=== PATIENT | male | born 1955 | race Caucasian/White ===

== ENCOUNTER → 2017-01-26 | Day surgery (SDC) | payer OTHER ==
[2017-01-18 08:02] VITALS: Ht 182.9 cm; Wt 109.1 kg
[~2017-01-26] VITALS: Ht 182.9 cm; Wt 109.1 kg
[~2017-01-26] MED LIST: AMLO-342 PO; COQ10 PO; LIDOCAINE HCL 2% 2 ML VIAL (20MG/ML) ONE; LORA-741 PO; MIDAZOLAM HCL 1 MG/ML 2ML VIAL ONE; MISCCAP80 PO; MULT-506 PO; ONDANSETRON INJ 2 MG/ML 2 ML VIAL ONE; PROPOFOL IV EMULSION 10 MG/ML 20 ML VIAL IV ONE; SIMV20TA2 PO; SODIUM CHLORIDE 0.9% 500ML 500 ML IV ONE
--- NOTE | 2017-01-26 08:50 | Endo History and Physical ---
History & Physical Date of Service: Jan 26, 2017. Chief Complaint: 5YR F/U TO POLYPS Referring Physician: DR Erin WHEELER History of Present Illness 61 yo CM who presents for colonoscopy secondary to history of colon polyps. Past Surgical History Hx Cardiac Surgery: No Hx Internal Defibrillator: No Hx Pacemaker: No Hx Abdominal Surgery: No Hx Post-Op Nausea and Vomiting: No Hx Cancer Surgery: No Hx Thoracic Surgery: No Hx Orthopedic: Yes (LEFT PRABHU, ACL REPAIR-LEFT) Hx Urinary Tract Surgery: No Family History None Social History Smoking Status: Never Smoker Hx Substance Use: No Hx Alcohol Use: Yes (OCCASSIONALLY) Allergies Coded Allergies: No Known Allergies (Verified , 01/26/17) Current Medications Reported Home Medications Medications Dose Route/Sig Max Daily Dose Days Date Category Zocor (Simvastatin) 20 Mg Tab 20 Mg PO QPM 01/18/17 Reported Probiotic (Probiotic Product) 1 Cap Cap 1 Cap PO QAM 01/18/17 Reported Multivitamin (Multivitamins) Tab 1 Tab PO QAM 01/18/17 Reported Ativan (Lorazepam) 0.5 Mg Tab 0.5 Mg PO DIRECTED PRN 01/18/17 Reported [Coq10] 1 Cap PO QAM 01/18/17 Reported Amlodipine Besylate/Valsa 10-160 mg (Amlodipine Besylate-Valsartan) 1 Tab Tab 1 Tab PO QAM 01/18/17 Reported Vital Signs Weight (Kilograms): 109.09 Height (Feet): 6 Height (Inches): 0 Date Time Temp Pulse Resp B/P Pulse Ox O2 Delivery O2 Flow Rate FiO2 01/26/17 08:19 36.9 91 20 167/92 95 Room Air Physical Exam General Appearance: WD/WN, no apparent distress Respiratory/Chest: Auscultation: breath sounds normal Cardiovascular: Heart Auscultation: RRR Abdomen: Bowel Sounds: normal Inspection & Palpation: soft, non-distended, no tenderness, guarding & rebound Assessment and Plan Assessment: 61 yo CM who presents for colonoscopy secondary to history of colon polyps. Plan: Proceed with colonoscopy.
--- NOTE | 2017-01-26 09:17 | Discharge Instructions ---
Endoscopy Patient Instructions Date / Procedure(s) Performed Jan 26, 2017. Colonoscopy Allergy Information Coded Allergies: No Known Allergies (Verified , 01/26/17) Discharge Date / Findings Jan 26, 2017. Colon polyps Diverticulosis Medication Instructions OK to resume all medications today as prescribed Reported Home Medications Medications Dose Route/Sig Max Daily Dose Days Date Category Zocor (Simvastatin) 20 Mg Tab 20 Mg PO QPM 01/18/17 Reported Probiotic (Probiotic Product) 1 Cap Cap 1 Cap PO QAM 01/18/17 Reported Multivitamin (Multivitamins) Tab 1 Tab PO QAM 01/18/17 Reported Ativan (Lorazepam) 0.5 Mg Tab 0.5 Mg PO DIRECTED PRN 01/18/17 Reported [Coq10] 1 Cap PO QAM 01/18/17 Reported Amlodipine Besylate/Valsa 10-160 mg (Amlodipine Besylate-Valsartan) 1 Tab Tab 1 Tab PO QAM 01/18/17 Reported Provider Instructions Activity Restrictions - No exercising or heavy lifting for 24 hours. - Do not drink alcohol the day of the procedure. - Do not drive a car or operate machinery until the day after the procedure. - Do not make any important decisions or sign important papers in 24 hours after the procedure. Following Day: - Return to full activity which may include returning to work/school. Diet Start your diet with liquids and light foods (jello, soup, juice, toast). Then eat your usual diet if not nauseated. Treatment For Common After Affects For mild abdominal pain, bloating, or excessive gas: - Rest - Eat lightly - Lie on right side Follow-Up Information Follow-up with DR Erin WHEELER as scheduled Anesthesia Information What You Should Know You have had a procedure that required some medicine to reduce anxiety and discomfort. This treatment is called moderate sedation. After receiving the treatment, you may be sleepy, but you will be able to breathe on your own. The effects of the treatment may last for several hours. Follow these instructions along with Activity/Diet recommendations noted above: * Do NOT do anything where dizziness or clumsiness would be dangerous. * Rest quietly at home today, then you can be up and about tomorrow. * Have a responsible person stay with you the rest of today. * You may have had an I.V. today. If so, you may take the dressing off later today. Recommendations Call your doctor if: * Trouble breathing * Continuous vomiting for more than 24 hours * Temperature above 101 degrees * Severe abdominal pain or bloating * Pain not relieved by pain medicine ordered * There is increased drainage or redness from any incision * A large amount of rectal bleeding greater than 2-3 tablespoons. (If you had a polyp/s removed or have hemorrhoids, a small amount of blood - from the rectum is to be expected.) * You have any unanswered questions or concerns. IN THE EVENT OF A SERIOUS EMERGENCY, GO TO THE NEAREST EMERGENCY ROOM Your discharge instructions were prepared by provider Pierce Celis. Patient Instructions Signature Page Julio Yousif Patient (or Guardian) Signature/Date: I have read and understand the instructions given to me by my caregivers. Caregiver/RN/Doctor Signature/Date: The above-named patient and/or guardian has received patient instructions on this date. + Original Patient Signature Page (only) stays with chart. Please make copy for patient.
--- NOTE | 2017-01-26 09:20 | GI REPORT ---
Procedure Date: 01/26/2017 8:43 AM Procedure: Colonoscopy Indications: High risk colon cancer surveillance: Personal history of colonic polyps Medicines: Monitored Anesthesia Care Complications: No immediate complications. Estimated Blood Loss: Estimated blood loss: none. Procedure: Pre-Anesthesia Assessment: - Prior to the procedure, a History and Physical was performed, and patient medications and allergies were reviewed. The patient's tolerance of previous anesthesia was also reviewed. The risks and benefits of the procedure and the sedation options and risks were discussed with the patient. All questions were answered, and informed consent was obtained. Prior Anticoagulants: The patient has taken no previous anticoagulant or antiplatelet agents. ASA Grade Assessment: II - A patient with mild systemic disease. After reviewing the risks and benefits, the patient was deemed in satisfactory condition to undergo the procedure. After I obtained informed consent, the scope was passed under direct vision. Throughout the procedure, the patient's blood pressure, pulse, and oxygen saturations were monitored continuously. The scope was introduced through the anus and advanced to the terminal ileum. The colonoscopy was performed without difficulty. The patient tolerated the procedure well. The quality of the bowel preparation was good. The terminal ileum, ileocecal valve, appendiceal orifice, and rectum were photographed. Findings: Three sessile polyps were found in the descending colon and in the ascending colon. The polyps were 5 to 6 mm in size. These polyps were removed with a hot snare. Resection and retrieval were complete. Multiple small-mouthed diverticula were found in the sigmoid colon. Impression: - Three 5 to 6 mm polyps in the descending colon and in the ascending colon, removed with a hot snare. Resected and retrieved. - Diverticulosis in the sigmoid colon. Recommendation: - Resume previous diet. - Continue present medications. - Repeat colonoscopy for surveillance based on pathology results. - Return to primary care physician as previously scheduled. Pierce Celis DO 01/26/2017 9:20:41 AM This report has been signed electronically. Note Initiated On: 01/26/2017 8:43 AM I attest to the content of the Intraoperative Record and orders documented therein, exceptions below
--- NOTE | 2017-01-26 09:38 | Anesthesiology Progress Note ---
Anesthesia Post Op Note Date & Time Jan 26, 2017 at 09:38 Vital Signs Pain Intensity: 0 Vital Signs Past 12 Hours Date Time Temp Pulse Resp B/P Pulse Ox O2 Delivery O2 Flow Rate FiO2 01/26/17 09:36 67 18 134/77 98 Room Air 01/26/17 09:22 76 16 117/75 96 Room Air 01/26/17 08:19 36.9 91 20 167/92 95 Room Air Notes Mental Status: alert / awake / arousable, participated in evaluation Pt Amnestic to Procedure: Yes Nausea / Vomiting: adequately controlled Pain: adequately controlled Airway Patency, RR, SpO2: stable & adequate BP & HR: stable & adequate Hydration State: stable & adequate Anesthetic Complications: no major complications apparent Pt doing very well.
[2017-01-26 09:56] VITALS: BP 130/78; PULSE 66; O2SAT 96
== END | disposition home or self-care (01) ==
LOC: C.GI 08:00
PROVIDERS: ATTEND Internal Medicine
DX: Z12.11 Encounter for screening for malignant neoplasm of colon (principal); Z86.010 Personal history of colon polyps; D12.4 Benign neoplasm of descending colon; K57.30 Diverticulosis of large intestine without perforation or abscess without bleeding; K64.8 Other hemorrhoids; Z98.890 Other specified postprocedural states

== ENCOUNTER → 2017-01-28 | Outpatient (CLI) | payer OTHER ==
[~2017-01-28] MED LIST changes: -LIDOCAINE HCL 2% 2 ML VIAL (20MG/ML) ONE; -MIDAZOLAM HCL 1 MG/ML 2ML VIAL ONE; -ONDANSETRON INJ 2 MG/ML 2 ML VIAL ONE; -PROPOFOL IV EMULSION 10 MG/ML 20 ML VIAL IV ONE; -SODIUM CHLORIDE 0.9% 500ML 500 ML IV ONE
== END | disposition home or self-care (01) ==
LOC: C.LABBC 14:45
PROVIDERS: ATTEND Internal Medicine
DX: Z11.59 Encounter for screening for other viral diseases (principal)

== ENCOUNTER → 2018-01-10 | Day surgery (SDC) | payer OTHER, SELFPAY ==
[2018-01-02 11:01] VITALS: Ht 182.9 cm; Wt 110.9 kg
[2018-01-03 15:25] LABS: CREATININE 0.85 mg/dl (0.60-1.40); POTASSIUM 3.8 mmol/L (3.5-5.1)
[2018-01-03 15:46] LABS: BASO % 0.3 %; BASO ABS # 0.03 K/uL (0-0.2); EOS % 1.4 %; EOS ABS # 0.12 K/uL (0-0.5); HEMATOCRIT 43.7 % (42-52); IG# 0.03 K/uL (0.00-0.02); LYMPH % 23.9 %; LYMPH ABS # 2.09 K/uL (1.2-3.4); MEAN CELL VOLUME 97.8 fL (80-100); MEAN CORPUSCULAR HEMOGLOBIN 33.6 pg (25-34); MEAN CORPUSCULAR HGB CONC 34.3 g/dl (32-36); MEAN PLATELET VOLUME 10.2 fL (7.4-10.4); MONO % 20.8 %; MONO ABS # 1.82 K/uL (0.11-0.59); NEUT % 53.3 %; NEUT ABS # 4.66 K/uL (1.4-6.5); PLATELET COUNT 238 K/uL (130-400); RED CELL DISTRIBUTION WIDTH CV 13.3 % (11.5-14.5); RED CELL DISTRIBUTION WIDTH SD 47.5 fL (36.4-46.3); WHITE BLOOD COUNT 8.75 K/uL (4.8-10.8)
[2018-01-03 15:51] LABS: PTT PATIENT 32.2 SECONDS (21.0-31.0)
[~2018-01-10] VITALS: Ht 182.9 cm; Wt 110.9 kg
[~2018-01-10] MED LIST changes: +ACETAMINOPHEN 325 MG TAB PO PRN; +ARTIFICIAL TEARS OP OINT 3.5 GM TUBE ONE; +ATROPINE SULFATE 0.1 MG/ML 5ML SYR IV PRN; +BSS FLUSH ONE; +CEFAZOLIN 2000MG IV PUSH 15 ML IV SCH; +ERYTHROMYCIN OP OINT 5 MG/GM 3.5 GM TUBE ONE; +EpHEDrine SULFATE 50MG/5ML SYR ONE; +EpHEDrine SULFATE INJ 50 MG/ML AMP IV PRN; +FENTANYL CITRATE INJ 50 MCG/1 ML 2 ML VIAL IV PRN; +FENTANYL CITRATE INJ 50 MCG/1 ML 2 ML VIAL ONE; +GENTIAN VIOLET TOP SOLN DROP CHARGE ONE; +LACTATED RINGER'S 1000ML 1,000 ML IV SCH; +LIDOCAINE HCL 2% 2 ML VIAL (20MG/ML) ONE; +LIDOCAINE/EPINEPHRINE 1% 20 ML VIAL ONE; -LORA-741 PO; +METOCLOPRAMIDE HCL INJ 5 MG/ML 2 ML VIAL IV PRN; +MIDAZOLAM HCL 1 MG/ML 2ML VIAL ONE; +ONDANSETRON INJ 2 MG/ML 2 ML VIAL IV PRN; +ONDANSETRON INJ 2 MG/ML 2 ML VIAL ONE; +OXYCODONE/ACETAMINOPHEN 5-325 TAB PO PRN; +PHENYLEPHRINE HCL INJ 10 MG/ML VIAL ONE; +POVIDONE-IODINE OP SOLN 30 ML BTL ONE; +PROPOFOL IV EMULSION 10 MG/ML 20 ML VIAL IV ONE; +SODIUM CHLORIDE 0.9% 1000ML 1,000 ML IV SCH
--- NOTE | 2018-01-10 07:36 | History & Physical Bridge - [place] ---
H&P Re-Evaluation Bridge Note: I have examined the patient, reviewed the History & Physical and in the interval since the performance of the History & Physical I have noted the following changes of clinical significance: No changes noted
--- NOTE | 2018-01-10 10:16 | Discharge Instructions ---
Discharge Instructions Date of Service Jan 10, 2018. Admission Reason for Admission: Dermatochalasis Discharge Discharge Diagnosis / Problem: dermatochalasis Discharge Goals Goal(s): Decrease discomfort, Improve function Activity Recommendations Activity Limitations: per Instructions/Follow-up section ACTIVITY RECOMMENDATIONS: __Normal activities _x_No bending, lifting or straining __No driving __Driving allowed when you are off pain medications _x_Walking permitted __You should have help at home for ___ days DRESSINGS: _x_No dressings required __Keep dressings dry/in place until first office visit __Remove dressings ___ and leave dressings off x__Apply ice to upper and lower eyelids for 20 minutes on/20 minutes off while awake for at least 3 days __Remove dressings and reapply garment _x_Apply antibiotic ointment to wounds 3-4 times/day for 10 days BATHING: __Keep dressings dry _x_Sponge bathing permitted __Showering permitted _x_No swimming, hot tubs or soaking in a tub. No showering until seen for your post-op visit MEDICATIONS: Resume previous medications unless instructed otherwise by your surgeon. _x_Do not use aspirin, Motrin, Advil or Ibuprofen as these may promote bleeding. Please use Tylenol. _x_Prescription(s) provided: pain medication and antibiotic eye ointment were provided at your last office visit OTHER INSTRUCTIONS: __Record drain output 2-3 times per day SPECIAL CARE INSTRUCTIONS: * It is normal to have a mild fever after surgery. If your temperature is higher than 101.5 degrees F, please call the office at [phone]. * Constipation is a typical side effect of pain medication. An over-the- counter stool softener will help relieve this. * Leaking around surgical drains may occur and should not cause concern. Sometimes these drains become clogged. If this happens, remove the bulb and milk the clot out of the tube, then replace the bulb. * Drainage from wounds after liposuction is normal and should be expected. Garments will become soiled. You should protect furniture and bedding. This drainage should mostly subside within 2-3 days. Leave garments in place unless instructed to remove them. * If you have unusual drainage from a wound or are concerned you have an infection or have any questions or concerns, please call the office at [phone]. FOLLOW UP VISIT: If not already scheduled, please call the office, , when you return home after surgery to schedule an appointment to be seen in _2__ days. . Current Hospital Diet Patient's current hospital diet: Discharge Diet Recommended Diet: Regular Diet Pending Studies Studies pending at discharge: no Medical Emergencies . Who to Call and When: Medical Emergencies: If at any time you feel your situation is an emergency, please call 911 immediately. . Non-Emergent Contact Non-Emergency issues call your: Surgeon . "Provider Documentation" section prepared by Minal Mireles. . [place] Drug Monitoring Program Search Results: no issues identified
--- NOTE | 2018-01-10 10:31 | [facility] Post Operative Brief Note ---
Immediate Operative Summary Operative Date Jan 10, 2018. Pre-Operative Diagnosis Dermatochalasis Post-Operative Diagnosis same as preop Procedure(s) Performed Bilateral Upper Blepharoplasty And Bilateral Lower Blepharoplasty Surgeon Dr. Briscoe Fourth Mate Surgeon(s) CHINA Gonsales Estimated Blood Loss 5ml Findings Consistent with Post-Op Diagnosis Specimens none Drains None Anesthesia Type General Complication(s) none Disposition Disposition: Recovery Room / PACU
[2018-01-10 11:44] VITALS: TEMP 36.8
[2018-01-10] MEDS: OXYCODONE/ACETAMINOPHEN 5-325 TAB PO PRN ×2 (11:55→12:14)
--- NOTE | 2018-01-10 12:31 | Anesthesia Progress Nt - [facility] ---
Anesthesia Post Op Note Date & Time Jan 10, 2018 at 12:28 Vital Signs Pain Intensity: 3.0 Vital Signs Past 12 Hours Date Time Temp Pulse Resp B/P (MAP) Pulse Ox O2 Delivery O2 Flow Rate FiO2 01/10/18 11:44 36.8 98 16 127/77 (94) 92 Room Air 01/10/18 11:32 96 17 01/10/18 11:32 95 17 92 01/10/18 11:31 137/74 01/10/18 11:28 36.8 91 12 134/73 94 Room Air 01/10/18 11:27 90 10 01/10/18 11:27 90 10 95 01/10/18 11:26 134/73 01/10/18 11:22 92 14 01/10/18 11:22 91 14 94 01/10/18 11:21 131/73 01/10/18 11:17 91 10 01/10/18 11:17 90 10 95 01/10/18 11:16 134/78 01/10/18 11:12 95 12 97 01/10/18 11:12 96 12 01/10/18 11:11 132/78 01/10/18 11:07 98 10 89 01/10/18 11:07 98 10 01/10/18 11:06 122/76 01/10/18 11:02 95 18 95 01/10/18 11:02 95 18 01/10/18 11:01 134/75 01/10/18 10:57 96 19 01/10/18 10:57 96 19 94 01/10/18 10:56 138/77 01/10/18 10:52 97 20 94 01/10/18 10:52 97 20 01/10/18 10:51 96 16 01/10/18 10:51 96 16 133/75 93 01/10/18 10:46 98 14 01/10/18 10:46 98 14 135/72 96 01/10/18 10:41 101 21 123/72 91 01/10/18 10:41 100 21 18 10:37 129/73 01/10/18 10:36 36.7 105 16 129/73 96 Diffusion Mask 10 01/10/18 07:21 36.7 109 18 155/92 (113) 98 Room Air Notes Mental Status: alert / awake / arousable, participated in evaluation Pt Amnestic to Procedure: Yes Nausea / Vomiting: adequately controlled Pain: adequately controlled Airway Patency, RR, SpO2: stable & adequate BP & HR: stable & adequate Hydration State: stable & adequate Anesthetic Complications: no major complications apparent During case LMA was in place and working well. Patient breathing spontaneously with low respiratory rate and low normal BP with adequate volatile anesthetic. Short burst of surgical stimulation caused patient to move and dislodge LMA. I was paged immediately to room while HAND MOLD MAKER deepened the anesthetic and repositioned the LMA. By the time I arrived, the LMA was in good position and functioning well. The prep was redone and the patient was redraped and surgery proceeded without incident. At time of planned discharge, the oxygen saturations were in the low 90s down from high 90s on admission. RN did feel that she heard some crackles in his lung bases. A chest xray was checked which showed no signs of aspiration and he was not having any respiratory symptoms. With deep breathing and cough his saturations were up to mid 90s. I suspect that this is some post op atelectasis due to GA under large body habitus. I encouraged activity and deep breathing today and relayed that he should be seen in the ER should he become symptomatic. I think he is quite safe to go home at this point.
--- NOTE | 2018-01-10 13:01 | DIAGNOSTIC IMAGING REPORT ---
SURGICNTR CHEST 1 VIEW PORTABL CLINICAL HISTORY: 62 years-old Male presenting with low oxygen saturation. TECHNIQUE: Portable upright AP view of the chest was obtained. COMPARISON: None. FINDINGS: Cardiomediastinal silhouette normal. Lungs and pleural spaces clear. Degenerative changes of the thoracic spine. Upper abdomen normal. IMPRESSION: 1. No acute cardiopulmonary disease. Electronically signed by: Ino Canchola M.D. 01/10/2018 1:00 PM Dictated Date/Time: 01/10/2018 12:59 PM
--- NOTE | 2018-01-11 19:57 | OPERATIVE REPORT ---
DATE OF OPERATION: 01/10/2018 PREOPERATIVE DIAGNOSIS: Upper and lower eyelid dermatochalasis. POSTOPERATIVE DIAGNOSIS: Same. PROCEDURE: Noncosmetic bilateral upper eyelid blepharoplasty, cosmetic lower blepharoplasty. SURGEON: Dr. Echo Briscoe. SWEETBREAD TRIMMER: Minal Mireles PA-C. ANESTHESIA: General. COMPLICATIONS: None. INDICATION FOR THE PROCEDURE: The patient is a 62-year-old male who presented to my office initially with concerns about a visual field obstruction related to his upper eyelids. He desired to undergo upper blepharoplasty and was interested in cosmetic lower blepharoplasty as well. He was deemed to be an acceptable candidate for this. The procedures including risks and benefits were reviewed and he desired to proceed. BRIEF DESCRIPTION OF THE PROCEDURE: The risks, benefits, alternatives of the procedure were explained to the patient who agreed and signed consent. He was identified and marked in the preoperative holding area. He was brought to the operating room where he was placed under sedation without incident. Surgical site was prepped and draped sterilely. A time-out procedure was performed. Markings were assessed. I began with the upper lid. The inferior incision was marked at 7 mm above the ciliary margin bilaterally which was at the supratarsal crease. Trapezoidal shaped skin incisions were marked, taking care not to cross the medial punctum medially and carrying the lateral aspect minimally into the lateral canthal area into the akutan's feet. Superior portion of the incision was marked and this was marked 1 cm beneath the eyebrow. A Beverly forceps was used to pinch the skin to ensure reasonable possibility of wound closure without lagophthalmos. Similar markings were applied on the right side. I also marked a subciliary incision bilaterally along the lower lids. Corneal protectors and Lacri-Lube were placed into the eyes. I began with the upper blepharoplasty which was the noncosmetic portion of the procedure. I began on the left side. 1% lidocaine with epinephrine was used to anesthetize the upper lids. A 15 blade scalpel was used to make the skin incisions and the skin was removed from the underlying orbicularis muscle in a lateral to medial direction using electrocautery taking care to provide hemostasis throughout dissection. Once the skin had been removed and hemostasis was assured, I incised the orbicularis muscle and orbital septum over the medial compartment. There was some medial fat which was returned and resected. 6-0 nylon sutures were used to reapproximate the incisions beginning in the mid pupillary line and closing a mid lid to the medial lid. A similar procedure was performed on the right side. At this point, the operating room staff was made aware that the cosmetic portion of the procedure was beginning. 1% lidocaine with epinephrine was used to anesthetize the lower lids. I began with the right side. A 15 blade scalpel was used to make the lateral aspect of the subciliary incision which was marked about 2 mm below and parallel to the ciliary margin with a short lateral canthal extension. The remainder of the incision was completed using a curved iris scissor after undermining with a straight iris scissor in the subcutaneous plane. The skin muscle flap was then raised off of the orbital septum, taking care to keep the pretarsal orbicularis muscle in place. Muscle flap was then raised to the level of the orbital rim. The septum was then incised to expose the medial, central and lateral fat compartments. The fat was carefully teased out of each of these compartments taking care not to over resect. Once this was accomplished, the planned skin resection was marked. This was accomplished by redraping the lower lid skin over the septum, taking conservative strip of skin measuring about 3 mm. I elected to remove skin only and leave the septal orbicularis in place. Next, a lateral canthopexy was performed suspending the orbicularis muscle, the lateral orbital rim using a 5-0 mattress type suture which was passed through the lateral upper lid incision. This was tied down and felt to be secure. I then closed the lower eyelid incision using 6-0 nylon interrupted sutures. The same procedure was undertaken on the left lower lid. Following this, a cosmetic time was ended and the remainder of the upper lid incisions were closed. The procedure was tolerated well. The patient was awakened and transferred to recovery room in satisfactory condition. I attest to the content of the Intraoperative Record and any orders documented therein. Any exception s are noted below.
== END | disposition home or self-care (01) ==
LOC: X.SURG 07:04
PROVIDERS: ATTEND Plastic Surgery
DX: H02.831 Dermatochalasis of right upper eyelid (principal); H02.834 Dermatochalasis of left upper eyelid; H02.832 Dermatochalasis of right lower eyelid; H02.835 Dermatochalasis of left lower eyelid; E78.5 Hyperlipidemia, unspecified; I10 Essential (primary) hypertension; G47.00 Insomnia, unspecified; L71.9 Rosacea, unspecified; Z90.89 Acquired absence of other organs; Z96.641 Presence of right artificial hip joint; F41.9 Anxiety disorder, unspecified

== ENCOUNTER → 2018-01-17 | Outpatient (CLI) | payer OTHER ==
[~2018-01-17] MED LIST changes: -ACETAMINOPHEN 325 MG TAB PO PRN; -ARTIFICIAL TEARS OP OINT 3.5 GM TUBE ONE; -ATROPINE SULFATE 0.1 MG/ML 5ML SYR IV PRN; -BSS FLUSH ONE; -CEFAZOLIN 2000MG IV PUSH 15 ML IV SCH; -ERYTHROMYCIN OP OINT 5 MG/GM 3.5 GM TUBE ONE; -EpHEDrine SULFATE 50MG/5ML SYR ONE; -EpHEDrine SULFATE INJ 50 MG/ML AMP IV PRN; -FENTANYL CITRATE INJ 50 MCG/1 ML 2 ML VIAL IV PRN; -FENTANYL CITRATE INJ 50 MCG/1 ML 2 ML VIAL ONE; -GENTIAN VIOLET TOP SOLN DROP CHARGE ONE; -LACTATED RINGER'S 1000ML 1,000 ML IV SCH; -LIDOCAINE HCL 2% 2 ML VIAL (20MG/ML) ONE; -LIDOCAINE/EPINEPHRINE 1% 20 ML VIAL ONE; -METOCLOPRAMIDE HCL INJ 5 MG/ML 2 ML VIAL IV PRN; -MIDAZOLAM HCL 1 MG/ML 2ML VIAL ONE; -ONDANSETRON INJ 2 MG/ML 2 ML VIAL IV PRN; -ONDANSETRON INJ 2 MG/ML 2 ML VIAL ONE; -OXYCODONE/ACETAMINOPHEN 5-325 TAB PO PRN; -PHENYLEPHRINE HCL INJ 10 MG/ML VIAL ONE; -POVIDONE-IODINE OP SOLN 30 ML BTL ONE; -PROPOFOL IV EMULSION 10 MG/ML 20 ML VIAL IV ONE; -SODIUM CHLORIDE 0.9% 1000ML 1,000 ML IV SCH
[2018-01-17 14:05] LABS: BLOOD UREA NITROGEN 24 mg/dl (7-18); CALCIUM 9.2 mg/dl (8.5-10.1); CARBON DIOXIDE 24 mmol/L (21-32); CREATININE 1.04 mg/dl (0.60-1.40); GLUCOSE 108 mg/dl (70-99); POTASSIUM 3.9 mmol/L (3.5-5.1); SODIUM 132 mmol/L (136-145)
== END | disposition home or self-care (01) ==
LOC: C.LABBC 09:25
PROVIDERS: ATTEND Nurse Practitioner Adult Health
DX: I10 Essential (primary) hypertension (principal)

== ENCOUNTER 2020-08-05 05:02 | Observation (INO) ==
--- NOTE | 2020-07-16 15:43 | PAT Medication Instructions ---
Medication Instructions Date of Service July 16, 2020 Home Medications Medication Instructions Recorded metronidazole 1 % topical gel with 1 appln TOP BID #165 gm 02/15/20 pump lorazepam 0.5 mg tablet 0.5 mg PO DAILY PRN #30 tab 03/24/20 Wheeled Walker #1 ea 07/04/20 zolpidem 6.25 mg tablet,extended 6.25 mg PO HS PRN #30 tab 07/09/20 release,multiphase Saccharomyces boulardii 250 mg capsule 250 mg PO QAM coenzyme Q10 10 mg capsule 100 mg PO QAM multivitamin 1 tab PO QAM psyllium husk 0.4 gram capsule 0.4 gm PO QAM turmeric root extract 500 mg capsule 500 mg PO QAM metronidazole 1 % topical gel with pump 1 appln TOP BID lorazepam 0.5 mg tablet 0.5 mg PO DAILY PRN zolpidem 6.25 mg tablet,extended release,multiphase 6.25 mg PO HS PRN amlodipine-valsartan 1 tab PO HS celecoxib 200 mg PO HS doxycycline hyclate 50 mg PO QAM simvastatin 20 mg PO HS Continue as directed metronidazole 1 % topical gel with pump 1 appln TOP BID (do not apply near surgical site) ASK your surgeon for instructions celecoxib 200 mg PO HS STOP taking 2 weeks before surgery If surgery is within 2 weeks, stop taking as soon as possible. coenzyme Q10 10 mg capsule 100 mg PO QAM turmeric root extract 500 mg capsule 500 mg PO QAM DO NOT take the morning of surgery Saccharomyces boulardii 250 mg capsule 250 mg PO QAM multivitamin 1 tab PO QAM psyllium husk 0.4 gram capsule 0.4 gm PO QAM doxycycline hyclate 50 mg PO QAM Take morning of surgery With a small sip of water, OTHERWISE NOTHING TO EAT OR DRINK AFTER MIDNIGHT: lorazepam 0.5 mg tablet 0.5 mg PO DAILY PRN (if needed) Take evening before surgery lorazepam 0.5 mg tablet 0.5 mg PO DAILY PRN (if needed) zolpidem 6.25 mg tablet,extended release,multiphase 6.25 mg PO HS PRN (if needed) amlodipine-valsartan 1 tab PO HS simvastatin 20 mg PO HS Other Notes If you have any questions please call us at [phone] or [phone] or [phone] or [phone]
--- NOTE | 2020-07-17 08:57 | Anesthesiology Consultation ---
Date of Service July 17, 2020 Assessment & Plan (1) Encounter for pre-operative examination: COVID Status: As of 07/17 assessment, patient denies travel to endemic area, known exposure/sick contacts, or symptoms of COVID19. Patient instructed that they and their household members must follow strict social distancing guidelines, wear a mask in public and avoid travel for 14 days prior to surgery. Preoperative COVID19 testing to be completed prior to surgery per surgeon's a rrangements. Patient made aware to self-isolate as much as possible between COVID testing and surgery. Chart Review Chart Review: Acceptable Risk for Surgery and Patient seen in Pre Admission Testing Teaching & Discussion Instructed NPO after midnight before surgery, except medications with 15 cc of water. Medication instructions provided according to the PAT guidelines. History Surgery Operation Date: 08/05/20 08:50 Proposed Procedures p Right Total Hip Replacement - Pepe Urias MD Height/Weight Height: 6 ft Weight: 126.6 kg Allergies Allergy/AdvReac Type Severity Reaction Status Date / Time No Known Allergies Allergy Verified 07/10/20 10:36 Medications Home Medications Medication Instructions Recorded Confirmed Last Taken Saccharomyces boulardii 250 mg 250 mg PO QAM cap 05/18/19 07/10/20 Unknown capsule coenzyme Q10 10 mg capsule 100 mg PO QAM cap 05/18/19 07/10/20 Unknown multivitamin 1 tab PO QAM 05/18/19 07/10/20 Unknown psyllium husk 0.4 gram capsule 0.4 gm PO QAM 05/18/19 07/10/20 Unknown turmeric root extract 500 mg 500 mg PO QAM 05/18/19 07/10/20 Unknown capsule metronidazole 1 % topical gel with 1 appln TOP BID #165 gm 02/15/20 07/10/20 Unknown pump lorazepam 0.5 mg tablet 0.5 mg PO DAILY PRN #30 tab 03/24/20 07/10/20 Unknown Wheeled Walker #1 ea 07/04/20 07/04/20 Unknown zolpidem 6.25 mg tablet,extended 6.25 mg PO HS PRN #30 tab 07/09/20 07/10/20 Unknown release,multiphase amlodipine-valsartan 1 tab PO HS 07/10/20 07/10/20 Unknown celecoxib 200 mg PO HS 07/10/20 07/10/20 Unknown doxycycline hyclate 50 mg PO QAM 07/10/20 07/10/20 Unknown simvastatin 20 mg PO HS 07/10/20 07/10/20 Unknown Past Medical History Medical History (Updated 07/18/20 @ 09:15 by Grant Sánchez) Brain vascular malformation Found incidentally on MRI, asymptomatic -F/U PCP Colon polyps Decreased hearing of both ears NO AIDES Degenerative joint disease of right hip Hyperlipidemia Hypertension Obesity Rosacea Exercise / Class Metabolic Activity II 4-5 Yardwork/Stairs/Walk up hill (Denies chest pain or SOB with 1 FOS) Past Family History Family History Unknown No pertinent family history Past Surgical History Surgical History History of Achilles tendon repair History of colonoscopy History of hip surgery L PRABHU 2004 Status post blepharoplasty of both eyes UPPER Past Anesthesia History No Hx of Anesthesia Complications and No Family Hx of Anesthesia Complications History of PONV No Hx of PONV and No Hx of Motion Sickness Social History Smoking Status: Never smoker Do You Dip or Chew Tobacco: No Hx Alcohol Use: Yes Alcohol type: wine alcohol intake frequency: a few times a week Hx Substance Use: No Review of Systems Pt denies any recent chest pain, shortness of breath, palpitations, cough, fever, URI, or uncontrolled acid reflux. Physical Exam Vital Signs BP: 136/77 P: 95bpm SPO2: 97% RA T: 98.1 F R: 16 ENMT Mouth: + dental restorations (one crown on a molar) and + macroglossia; no chipped teeth and no loose teeth Thyromental Distance: > or= 3.5 Finger Breadths Mallampati Class: II Neck + short neck and + thick neck; neck extension not limited Respiratory normal respiratory effort Auscultation: lungs clear to auscultation bilaterally Cardiovascular Rate/Rhythm: regular rate and regular rhythm Heart Sounds: no murmur Extremities: no edema Testing Laboratory Results 07/17/20 09:08 07/17/20 09:08 PT 10.9 Seconds (9.0-12.0) 07/17/20 09:08 INR 1.0 (0.9-1.1) 07/17/20 09:08 APTT 35.3 Seconds (21.0-31.0) H 07/17/20 09:08 Blood Type O Positive 07/17/20 09:08 Antibody Screen NEGATIVE 07/17/20 09:08 Electrocardiogram Date: 07/17/20 Findings: + NSR @ (82bpm) Low voltage QRS. Chest X-Ray Date: 07/17/20 Findings: + NAD
--- NOTE | 2020-07-17 09:37 | XRay Report ---
XR chest Pre-admission PA/Lat HISTORY: Preop. COMPARISON: Chest 01/10/2018. FINDINGS: The lungs are clear. Cardiac silhouette is top normal in size. No pleural effusions. No pne umothorax. IMPRESSION: No acute process. ACT 112: Negative or not required by law. Electronically signed by: Dat Oliva M.D. 07/17/2020 9:35 AM
[2020-07-17 10:26] LABS: Basophils # (auto) 0.03 K/uL (0-0.2); Basophils % (auto) 0.3 %; Eosinophils # (auto) 0.18 K/uL (0-0.5); Eosinophils % (auto) 1.7 %; Hematocrit (blood only) 44.2 % (42-52); Immature Granulocytes # (auto) 0.05 K/uL (0.00-0.02); Immature Granulocytes % (auto) 0.5 %; Lymphocytes # (auto) 2.24 K/uL (1.2-3.4); Mean Corpuscular Hemoglobin 33.6 pg (25-34); Mean Corpuscular Hgb Conc 33.9 g/dL (32-36); Mean Corpuscular Volume 99.1 fL (80-100); Mean Platelet Volume 10.2 fL (7.4-10.4); Monocytes # (auto) 1.91 K/uL (0.11-0.59); Monocytes % (auto) 17.9 %; Neutrophils # (auto) 6.24 K/uL (1.4-6.5); Neutrophils % (auto) 58.6 %; Platelet Count 228 K/uL (130-400); RDW Coefficient of Variation 12.3 % (11.5-14.5); RDW Standard Deviation 44.4 fL (36.4-46.3); Red Blood Count 4.46 M/uL (4.7-6.1); White Blood Count 10.65 K/uL (4.8-10.8)
[2020-07-17 10:40] LABS: Partial Thromboplastin Ratio 1.3; Partial Thromboplastin Time 35.3 Seconds (21.0-31.0); Prothrombin Time 10.9 Seconds (9.0-12.0)
[2020-07-17 12:00] LABS: BUN Creatinine Ratio 14.3 (10-20); C Reactive Protein 0.58 mg/dl (0-0.29); Calcium 9.3 mg/dl (8.5-10.1); Creatinine Clr Calc Pharmacy 107.4 ml/min; Est GFR (African American) 95.4; Est GFR (Non-African American) 82.3
--- NOTE | 2020-07-18 12:40 | Electrocardiogram Report ---
Test Reason : Blood Pressure : / mmHG Vent. Rate : 082 BPM Atrial Rate : 082 BPM P-R Int : 194 ms QRS Dur : 106 ms QT Int : 374 ms P-R-T Axes : 070 055 034 degrees QTc Int : 436 ms Normal sinus rhythm Low voltage QRS Borderline ECG When compared with ECG of 03-JAN-2018 14:57, Questionable change in QRS axis Confirmed by Almas Jhaveri ([id number]) on 07/18/2020 12:39:51 PM Referred By: Pepe Urias Confirmed By:Almas Jhaveri
--- NOTE | 2020-07-29 22:43 | History and Physical Report ---
DATE OF ADMISSION: 08/05/2020 CHIEF COMPLAINT: Right hip and groin pain. HISTORY OF PRESENT ILLNESS: The patient is a 64-year-old gentleman who is referred by my partner, Dr. Beltran for surgical treatment of his right hip. He is a friend of Dr. Beltran's as well. He has a history of left hip replacement done by Dr. Freedman in May of 2005. He has done pretty well from this. Over the past several years, he has developed increased pain and discomfort in his right hip. It has got more painful and disabling over time. He tries to get out and exercise, but limited by his pain and discomfort. The more he is up and on his leg, the more it hurts. He limps as time goes on. He has been on Medrol Dosepak which does seem to help his symptoms temporarily. He takes ibuprofen with little relief. Denies any radicular symptoms. No real back pain. He would like to have his hip fixed. PAST MEDICAL HISTORY: Significant for 1. Hypertension. 2. Elevated cholesterol. 3. Low back pain/sciatica. 4. Obesity with a BMI of 38. 5. Insomnia. PAST SURGICAL HISTORY: Include: 1. Eyelid surgery. 2. Left total hip replacement done 05/27/2005. 3. Left ACL repair. ALLERGIES: None. CURRENT MEDICINES: Include: 1. Valsartan. 2. Coenzyme Q. 3. Doxycycline. 4. Lorazepam. 5. Metronidazole. 6. Multivitamin. 7. Psyllium. 8. Simvastatin. 9. Turmeric root. 10. Zolpidem. SOCIAL HISTORY: A 64-year-old male. He lives in [place]. Four drinks per week. Does not smoke. FAMILY HISTORY: Noncontributory. REVIEW OF SYSTEMS: Significant for some mild obesity. Denies any chest pain, shortness of breath. No history of DVT or PE. No known bleeding problems. PHYSICAL EXAMINATION GENERAL: Shows a pleasant, middle-aged male, looks to be in pretty good health. HEENT: Benign. NECK: Supple, no lymphadenopathy. LUNGS: Clear to auscultation. HEART: Has regular rate and rhythm. ABDOMEN: Soft, nontender, nondistended. EXTREMITIES: Grossly neurovascularly intact except as follows: Examination of the right hip and leg reveal patient ambulates independently. Does seem to limp a little bit on his right side. Leg lengths seemed pretty equal but maybe just a little bit short on this side compared to the opposite side. He does have pain with hip motion. He can internally rotate to about neutral. This does recreate his pain. No knee effusion. He is neurologically intact. Negative straight leg raise. X-RAYS: X-rays of the right hip were reviewed. Shows moderate to advanced right hip DJD. He has got fairly concentric disease. He has got Cam impingement. The left hip replacement looks to be in pretty good position without signs of problems. ASSESSMENT: A 64-year-old male 15 years out from a left hip replacement with several other medical comorbidities including hypertension, elevated cholesterol, obesity with a moderate to advanced hip arthritis, unresponsive to conservative care and limiting his lifestyle. He would like to have his right hip replaced. His left side has done well and he would like to have his hip replaced so he could be more active and less painful. PLAN: We will proceed with right total hip replacement. The risks and benefits of this procedure were explained to the patient including but not limited to DVT, PE, , infection, neurological injury, vascular injury, bleeding problem, pain, limited range of motion, stiffness, failure to relieve symptoms, incomplete relief of symptoms, need for further surgery in future, fracture, leg length inequality, nerve palsy, dislocation, leg length inequality, need for blood transfusion, etc. The patient understands and desires to proceed. Informed consent was obtained. As far as discharge plans, he is planning to be discharged to home using [facility] home health program. I did tell him we will do the best we can to make his leg lengths equal.
[2020-08-05] MEDS ORDERED: GABAPENTIN 600 MG DOSE PO SCH (06:00)
[2020-08-05] MEDS ORDERED: FAMOTIDINE 20 MG TAB PO SCH (06:00)
[2020-08-05] MEDS ORDERED: LR 60ML/HR IV SCH (06:00)
[2020-08-05] MEDS ORDERED: TRANEXAMIC ACID 1,000 MG **IV Pre-op IV SCH (06:00)
[2020-08-05] MEDS ORDERED: ACETAMINOPHEN 500 MG TAB PO SCH (06:00)
[2020-08-05] MEDS ORDERED: LR 15ML/HR IV SCH (06:00)
[2020-08-05] MEDS ORDERED: METOCLOPRAMIDE HCL 10 MG TABLET PO SCH (06:00)
[2020-08-05] MEDS ORDERED: BUPIVACAINE 0.5 % 5 MG/1 ML PF 10ML VIAL ONE (06:20)
[2020-08-05] MEDS ORDERED: BACITRACIN INJ 50,000 UNIT VIAL ONE (06:40)
[2020-08-05] MEDS ORDERED: fentaNYL citrate 100 MCG/2 ML VIAL ONE ×2 (06:41→09:19)
[2020-08-05] MEDS ORDERED: EPINEPHrine INJ 1 MG/ML AMP ONE (06:41)
[2020-08-05] MEDS ORDERED: MoRPHine SULFATE PF 1 MG/ML 10 ML AMP/VIAL ONE (06:41)
[2020-08-05] MEDS ORDERED: BUPIVACAINE 0.5 % 5 MG/1 ML MPF 30ML VIAL ONE ×2 (06:41→06:51)
[2020-08-05] MEDS ORDERED: MIDAZOLAM HCL 1 MG/ML 2ML VIAL ONE (06:41)
[2020-08-05] MEDS ORDERED: NALOXONE HCL 1 MG in SODIUM CHLORIDE 0.9% 1000ML 1,000 ML IV PRN (06:45)
[2020-08-05] MEDS ORDERED: DC INTRASPINAL MORPHINE SCH (06:45)
[2020-08-05] MEDS ORDERED: ePHEDrine sulfate 50 MG/ML AMP IV PRN ×2 (06:45→07:33)
[2020-08-05] MEDS ORDERED: LACTATED RINGER'S 500 ML IV PRN (06:45)
[2020-08-05] MEDS ORDERED: NALOXONE HCL 0.4 MG/1 ML VIAL/CARP IV PRN ×2 (06:45→10:08)
[2020-08-05] MEDS ORDERED: NO NARCOTICS OR SEDATIVES SCH (06:45)
[2020-08-05] MEDS ORDERED: ONDANSETRON INJ 2 MG/ML 2 ML VIAL IV PRN ×3 (06:45→10:08)
[2020-08-05] MEDS ORDERED: MoRPHine SULFATE PF 1 MG/ML 10 ML AMP/VIAL INT SPINAL ONE (06:45)
[2020-08-05] MEDS ORDERED: NALOXONE HCL 0.08 MG in SYRINGE 1.8 ML IV PRN (06:45)
[2020-08-05] MEDS ORDERED: diphenhydrAMINE 50 MG/ML VIAL IV PRN (06:45)
[2020-08-05] MEDS ORDERED: MoRPHine SULFATE 2 MG/ML CARP IV PRN (06:45)
[2020-08-05] MEDS ORDERED: SODIUM CHLORIDE 0.9% 1000ML 1,000 ML IV SCH (06:45)
--- NOTE | 2020-08-05 06:52 | History & Physical Bridge Note ---
Date of Service August 05, 2020 History & Physical Bridge Note I have examined the patient, reviewed the History & Physical and in the interval since the performance of the History & Physical I have noted the following changes of clinical significance: no changes noted
[2020-08-05] MEDS ORDERED: HYDROmorphone INJ 2 MG/ML SYR/VIAL ONE (07:29)
[2020-08-05] MEDS ORDERED: ATROPINE SULFATE 0.1 MG/ML 10ML SYR IV PRN (07:33)
[2020-08-05] MEDS ORDERED: HYDROmorphone INJ 2 MG/ML SYR/VIAL IV PRN (07:33)
[2020-08-05] MEDS ORDERED: LIDOCAINE 2% 20 MG/ML 5 ML SYR IV ONE (07:48)
[2020-08-05] MEDS ORDERED: ROCURONIUM BROMIDE 10 MG/ML 5 ML VIAL IV ONE ×5 (07:48)
[2020-08-05] MEDS ORDERED: PROPOFOL IV EMULSION 10 MG/ML 20 ML VIAL IV ONE (07:48)
[2020-08-05] MEDS ORDERED: SUCCINYLCHOLINE CHLORIDE 20 MG/ML 10 ML VIAL IV ONE (07:48)
[2020-08-05] MEDS ORDERED: PHENYLEPHRINE 100MCG/ML 5ML SYR ONE (07:48)
[2020-08-05] MEDS ORDERED: SUGAMMADEX SODIUM 200 MG/2 ML VIAL IV ONE (08:04)
--- NOTE | 2020-08-05 09:00 | Post Operative Brief Note ---
PG Immediate Post Op with CF Date of Surgery August 05, 2020 Pre & Post Diagnosis Operation Date: 08/05/20 07:00 Pre-Op Diagnosis: Right Hip Degenerative Joint Disease Post-Op Diagnosis: Right Hip Degenerative Joint Disease I identified the patient and participated in the time-out.: Yes Procedure Operation Date: 08/05/20 07:00 Actual Procedures p Right Total Hip Replacement(Right) - Pepe Urias MD Surgeon Pepe Urias MD Warehouse Unloader John, PAC Estimated Blood Loss 300 Findings Consistent with Post-Op Diagnosis Fluids 1700 cc Specimens Specimen Description: A. Right femoral head Anesthesia Type General Complications none Disposition Accompanied Patient To Recovery: No Disposition: Recovery Room
--- NOTE | 2020-08-05 09:17 | Operative Report ---
Post Operative Report Pre & Post Diagnosis Operation Date: 08/05/20 07:00 Pre-Op Diagnosis: Right Hip Degenerative Joint Disease Post-Op Diagnosis: Right Hip Degenerative Joint Disease I identified the patient and participated in the time-out.: Yes Procedure Operation Date: 08/05/20 07:00 Actual Procedures p Right Total Hip Replacement(Right) - Ppee Urias MD Surgeon Pepe Urias MD Foreign Language Stenographer John, PAC Estimated Blood Loss 300 Findings Consistent with Post-Op Diagnosis Extensive wear of the femoral head.Operative findings revealed advanced right hip DJD with extensive grade 4 [id number] disease of the femoral head and acetabulum. He had a small anterior acetabular osteophyte. Significant joint effusion. Extensive wear of the femoral head. Fluids 1700 cc. Specimens Right femoral head sent for pathology. Drains None. Complications none Disposition Accompanied Patient To Recovery: No Disposition: Recovery Room Indications Patient is a 64-year-old gentleman with a several year history of increasing right hip pain discomfort unresponsive conservative care. X-rays show advanced hip arthritis. He failed all conservative measures and elected proceed with right total hip arthroplasty. Of note, patient had his left hip replaced about 15 years ago. Description of Procedure Operative implants consist of: 1. Biomet G7 size 56 mm acetabular shell. 2. [place] hole eliminator. 3. 6.5 cancellus acetabular screws 1 of 35 mm length and 1.5 mm length. 4. Highly cross-linked polyethylene liner with a 56 mm outer diameter and 36 mm inner diameter. 5. Jeramy Corail size 13 KLA femoral stem. 6. +8.5/36 mm ceramic articular ball. The patient was taken to the operating identified and placed on the operating table supine position protectors were appropriately padded. IV antibiotics were tried by anesthesia team. A spinal anesthetic was attempted in the holding area but unsuccessful. A general anesthetic was implemented. The patient was then placed in the left lateral cubitus position. Axillary roll was placed. A Stulberg hip positioner was used for positioning. The right hip and leg were then prepped and draped in the usual sterile fashion. A posterior lateral approach to the right hip was then performed to a curv ilinear incision centered over the greater trochanter. Sharp dissection was got through subcutaneous tissue down to level the IT band gluteal fascia the IT band gluteal fascia were then incised longitudinally in line with skin incision. The underlying greater truck bursa was excised. The piriformis and external rotators along with the posterior capsule released as a single layer from the posterior aspect of the hip joint. Hip was internally rotated and dislocated. Femoral neck osteotomy cut was made with Final Cut 14 mm above the lesser trochanter. Femoral head was removed and sent for pathology. The femur was retracted anteriorly. Attention drawn the acetabulum. The acetabular labrum was excised. A large portion of this was ossified. The pulmonary fat was excised. Sequential reaming the acetabular was then performed given the size 45 and progressing up to 55. I then reamed slightly with a 56 reamer. A 56 mm Biomet G7 acetabular shell was then placed in about 40 degrees lateral opening and 20 degrees of anteversion. It was fixed with two 6.5 cancellus acetabular screws. Small anterior osteophyte was removed. Trial liner was placed. Attention drawn the femur. The proximal femur was entered with a cookie-cutter followed by canal finder. I then broached the femur beginning with a size 8 and progressing up to 13. Got excellent fit with a 13. We used a calcar reamer to smooth and off the calcar. Then trialed the hip. With a +5 articular ball the hip was fully stable without soft tissue tension just seem lax. We did medialize this cup. The leg lengths seemed pretty equal but soft tissue tension still lax we elect to place a +8.5 head. Hip was fully stable with this. We elect to place these implants. All trial implants were removed. An apex hole director of elementary education was placed. Highly cross-linked polyethylene liner was placed. A Jeramy 13 KLA femoral stem was impacted in position. +8.5/36 mm ceramic articular ball was placed. Hip was located once again found to be stable. Attention drawn to closing. Wounds irrigated closed muscle pulsatile lavage solution. I did inject locally with 60 cc of half percent Marcaine with epinephrine. The posterior capsule and external rotators then repaired through drill holes as a single layer with #2 Tycron suture. The IT band gluteal fascia then closed in 1 PDS suture running fashion for subcutaneous tissues then closed with 2 layers the deep layer #2 Vicryl suture in the subcutaneous tissues with 2-0 Dexon suture in a buried interrupted fashion the skin was closed skin albina. Leg was then cleaned and dried and a sterile dressing composed of Xeroform, 4 x 4's, sterile ABD pad and foam tape was applied. Patient then brought out of general anesthesia and transferred to the recovery room in stable condition. The patient tolerated the procedure well and there were no complications. Geovanny Lopez, my physician assistant librarian, was present for the entire procedure. His assistance was required and essential for appropriate patient positioning, prepping and draping, surgical exposure, performing the technical details of the operation, placing the implants, closure of the wound, and placement of the sterile bandage. I attest to the content of the Intraoperative Record and any orders documented therein. Any exceptions are noted below.
[2020-08-05] MEDS: fentaNYL citrate 100 MCG/2 ML VIAL IV PRN ×2 (09:20→09:25)
[2020-08-05] MEDS ORDERED: HYDROmorphone INJ 1 MG/ML SYRINGE ONE (09:32)
--- NOTE | 2020-08-05 10:06 | XRay Report ---
AP PELVIS, CROSSTABLE LATERAL RIGHT HIP History: Right total hip arthroplasty. Degenerative arthritis. Postop. FINDINGS: The patient is status post a right total hip arthroplasty. The hardware is intact. No fract ure or dislocation. Skin albina are in place. Evidence for prior left total hip arthroplasty. IMPRESSION: Right total hip arthroplasty. No evidence for hardware complication ACT 112: Negative or not required by law. Electronically signed by: Dat Oliva M.D. 08/05/2020 10:04 AM
[2020-08-05] MEDS ORDERED: METOCLOPRAMIDE HCL INJ 5 MG/ML 2 ML VIAL IV PRN (10:08)
[2020-08-05] MEDS ORDERED: TAMSULOSIN HCL 0.4 MG CAP PO PRN (10:08)
[2020-08-05] MEDS ORDERED: NON-FORMULARY MEDICATION (Turmeric Root Extract 500 MG) PO SCH (10:08)
[2020-08-05] MEDS ORDERED: ALUMINUM/MAGNESIUM SUSP 30 ML UDC PO PRN (10:08)
[2020-08-05] MEDS ORDERED: NON-FORMULARY MEDICATION (Coenzyme Q10 [Co Q-10] 100 MG) PO SCH (10:08)
[2020-08-05] MEDS ORDERED: PSYLLIUM HUSK 0.4 GM PO SCH (10:08)
[2020-08-05] MEDS ORDERED: bisacodyL 10 MG SUPP PR PRN (10:08)
[2020-08-05] MEDS ORDERED: diphenhydrAMINE Capsule 25 MG CAP PO PRN (10:08)
[2020-08-05] MEDS ORDERED: MAGNESIUM HYDROXIDE SUSP 30 ML UDC PO PRN (10:08)
[2020-08-05] MEDS: SODIUM CHLORIDE 0.9% 1000ML 1,000 ML IV SCH ×3 (10:17→22:27)
--- NOTE | 2020-08-05 10:40 | Anesthesiology Progress Note ---
Date of Service August 05, 2020 Anesthesia Post Procedure Vital Signs Vital Signs: Temp Pulse Pulse Resp BP Pulse Ox 08/05/20 10:34 98 H 16 117/83 93 08/05/20 09:55 36.9 C 94 H 15 111/86 92 08/05/20 09:45 97 H 14 131/91 93 08/05/20 09:35 98 H 16 135/81 92 08/05/20 09:25 94 H 15 129/86 95 08/05/20 09:15 36.6 C 90 16 131/81 97 08/05/20 05:50 37.3 C 113 H 20 150/85 H 94 Pain Intensity Left Hip: Pain Intensity: 6 Right Hip: Pain Intensity: 4 Transfer of Care Handoff Completed per policy Notes Mental Status: alert / awake / arousable and participated in evaluation Patient Amnestic to Procedure: Yes Nausea / Vomiting: adequately controlled Pain: adequately controlled Airway Patency, RR, SpO2: stable & adequate BP & HR: stable & adequate Hydration State: stable & adequate Anesthetic Complications: no major complications apparent and Pt Satisfied with anesthetic care
[2020-08-05] MEDS: KETOROLAC 30 MG/ML VIAL IV SCH ×3 (10:59→22:26)
[2020-08-05] MEDS: SACCHAROMYCES BOULARDII 250 MG CAP PO SCH (10:59)
[2020-08-05] MEDS: MULTIVITAMIN TAB PO SCH (10:59)
[2020-08-05] MEDS: traMADol HCL 50 MG TABLET PO PRN ×2 (12:08→19:17)
--- NOTE | 2020-08-05 12:10 | Progress Notes ---
DATE: 08/05/2020 SUBJECTIVE: A 64-year-old gentleman postop from a right hip replacement. He is doing well. Not having any pain yet. No chest pain or shortness of breath. Not feeling dizzy or lightheaded. OBJECTIVE: VITAL SIGNS: Temperature 36.7. Vital signs stable. GENERAL: Shows a pleasant, middle-aged male. I had to wake him when I went in his room this afternoon. LUNGS: Clear to auscultation. HEART: Has a regular rate and rhythm. ABDOMEN: Soft, nontender, nondistended. EXTREMITIES: Grossly neurovascularly intact except as follows: Examination of the right leg reveals the leg to be well aligned. Dressing is clean, dry and intact. His thigh is soft and supple. He can dorsiflex and plantarflex his foot appropriately. He is neurologically intact. X-RAYS: X-rays of the right hip from recovery room reviewed. It shows right uncemented total hip arthroplasty. Components looked to be in good position. No signs of problems. ASSESSMENT: A 64-year-old gentleman postop from a right hip replacement, doing well. His hip is located. He is neurologically intact. His pain is controlled. PLAN: 1. DVT prophylaxis including thigh-high TEDs, SCDs, and aspirin twice a day. 2. PT/OT. Weight bear as tolerated. Right total hip protocol. 3. Pain control, doing well with current pain regimen. 4. IV antibiotics x24 hours. 5. Disposition: Plan to discharge to home with some home health once adequately recovered and medically stable.
[2020-08-05] MEDS: HYDROmorphone INJ 0.5 MG/0.5 ML SYR IV PRN (13:59)
[2020-08-05] MEDS: ceFAZolin 2000MG 2,000 MG/15 ML SYR IV SCH ×2 (14:10→22:26)
[2020-08-05] MEDS ORDERED: TRANEXAMIC ACID / 0.7% NACL 1,000 MG/100 ML BAG IV SCH (15:00)
[2020-08-05] MEDS: Scopolamine CHECK PATCH PLACEMENT SCH (15:36)
[2020-08-05] MEDS: FERROUS GLUCONATE 324 MG TAB PO SCH (16:09)
[2020-08-05] MEDS: ASCORBIC ACID 500 MG TAB PO SCH (16:09)
[2020-08-05] MEDS: ACETAMINOPHEN 500 MG TAB PO SCH (20:11)
[2020-08-05] MEDS: ASPIRIN 81 MG ECTAB PO SCH (20:12)
[2020-08-05] MEDS: DOCUSATE SODIUM 100 MG CAP PO SCH (20:12)
[2020-08-05] MEDS ORDERED: VALSARTAN 80 MG TAB PO SCH (21:00)
[2020-08-05] MEDS ORDERED: amLODIPine BESYLATE 5 MG TAB PO SCH (21:00)
[2020-08-05] MEDS ORDERED: SIMVASTATIN 20 MG TAB PO SCH (21:00)
[2020-08-05] MEDS ORDERED: SENNA 8.6 MG TAB PO SCH (21:00)
[2020-08-06] MEDS: HYDROmorphone INJ 0.5 MG/0.5 ML SYR IV PRN (00:27)
[2020-08-06] MEDS: Scopolamine CHECK PATCH PLACEMENT SCH ×2 (00:30→08:50)
[2020-08-06] MEDS: traMADol HCL 50 MG TABLET PO PRN ×2 (02:44→08:51)
[2020-08-06] MEDS: KETOROLAC 30 MG/ML VIAL IV SCH ×2 (04:44→11:30)
[2020-08-06] MEDS: ACETAMINOPHEN 500 MG TAB PO SCH ×2 (04:51→11:30)
[2020-08-06 07:19] LABS: Hematocrit (blood only) 34.1 % (42-52); Hemoglobin 11.4 g/dL (14.0-18.0); Mean Corpuscular Hemoglobin 32.9 pg (25-34); Mean Corpuscular Hgb Conc 33.4 g/dL (32-36); Mean Corpuscular Volume 98.6 fL (80-100); Mean Platelet Volume 9.7 fL (7.4-10.4); Platelet Count 210 K/uL (130-400); RDW Coefficient of Variation 12.4 % (11.5-14.5); RDW Standard Deviation 44.5 fL (36.4-46.3); Red Blood Count 3.46 M/uL (4.7-6.1); White Blood Count 16.79 K/uL (4.8-10.8)
[2020-08-06 07:41] LABS: Immature Granulocytes # (auto) 0.05 K/uL (0.00-0.02); Immature Granulocytes % (auto) 0.3 %; Lymphocytes # (auto) 1.28 K/uL (1.2-3.4); Lymphocytes % (auto) 7.6 %; Monocytes # (auto) 3.14 K/uL (0.11-0.59); Monocytes % (auto) 18.7 %; Neutrophils # (auto) 12.32 K/uL (1.4-6.5); Neutrophils % (auto) 73.4 %
[2020-08-06 07:45] LABS: Calcium 8.3 mg/dl (8.5-10.1); Creatinine Clr Calc Pharmacy 112.7 ml/min; Est GFR (African American) 100.3; Est GFR (Non-African American) 86.5; Potassium 4.1 mmol/L (3.5-5.1)
[2020-08-06] MEDS: MULTIVITAMIN TAB PO SCH (08:50)
[2020-08-06] MEDS: FERROUS GLUCONATE 324 MG TAB PO SCH (08:50)
[2020-08-06] MEDS: ASCORBIC ACID 500 MG TAB PO SCH (08:50)
[2020-08-06] MEDS: SACCHAROMYCES BOULARDII 250 MG CAP PO SCH (08:50)
[2020-08-06] MEDS: ASPIRIN 81 MG ECTAB PO SCH (08:50)
[2020-08-06] MEDS: DOCUSATE SODIUM 100 MG CAP PO SCH (08:52)
[2020-08-06] MEDS ORDERED: MULTIVITAMIN TAB PO SCH (09:00)
--- NOTE | 2020-08-06 12:22 | Progress Notes ---
DATE: 08/06/2020 SUBJECTIVE: A 64-year-old gentleman postop day 1 from a right total hip replacement. He is doing quite well. He says his pain is much improved. He has been getting around reasonably well. No chest pain or shortness of breath. Not feeling dizzy or lightheaded. He really wants to go home. OBJECTIVE: VITAL SIGNS: Temperature 36.7. Vital signs stable. GENERAL: Reveals a fairly large middle-aged male. He is sitting up in his bedside and looks quite comfortable. EXTREMITIES: Examination of the right hip reveals the dressing to be clean, dry and intact. Leg lengths are equal. He can dorsiflex and plantarflex his foot appropriately. He is neurologically intact. LABORATORY DATA: Hemoglobin is 11.4. Hematocrit is 34.1. Electrolytes are stable. ASSESSMENT: A 64-year-old gentleman postoperative day 1 from a right hip replacement, doing pretty well. His pain is controlled. Hip is located. He is neurologically intact. White cell count is elevated, likely related to stress. PLAN: 1. DVT prophylaxis including thigh-high TEDs, SCDs, and aspirin twice a day. 2. PT/OT. Weight bear as tolerated. Right total hip protocol. 3. Pain control, doing well with current pain regimen. 4. Disposition: Plan to discharge to home with some home health if he does okay in therapy.
[2020-08-06] MEDS ORDERED: ZOLPIDEM TARTRATE 5 MG TAB PO SCH (21:00)
--- NOTE | 2020-08-11 16:19 | Discharge Summary ---
Date of Service August 11, 2020 Admission HPI Per Admitting Provider Documented in the H & P Admission Exam (Per Admitting) Constitutional Documented in the H & P Discharge Data Consultations 08/06/20 08:00 Consult Case Management - Discharge Planning Routine Procedures Performed Operation Date: 08/05/20 07:00 Actual Procedures p Right Total Hip Replacement(Right) - Pepe Urias MD Hospital Course (1) Status post total hip replacement, right: This patient is a 64 year old male admitted on 08/05/20 and underwent total hip arthroplasty. He tolerated the procedure well and there were no complications. Transferred to the PACU post op and later to the orthopedic floor for further care. He was given ancef for antibiotic prophylaxis. He was also given [place] stockings, SCDs, and aspirin for DVT prophylaxis. Hemoglobin, hematocrit, and vital signs were monitored during his hospital stay and remained stable. Did not require any blood transfusions. There were no complications during his hospital stay. By post op day #1 the patient was tolerating a regular diet, pain was reasonably controlled with oral pain medicine, and he was participating in physical therapy. On post op day #1 the patient was discharged home and set up with home health care. He was given printed discharge instructions including prescriptions for extra strength tylenol, aspirin, and tramadol. Continue physical therapy, weight bearing as tolerated. Continue total hip precautions. Continue AUGUSTINA stockings. Follow up approximately 2 weeks post op or sooner if there are pr oblems or concerns. Coding Level of Care Code None Diagnoses Status post total hip replacement, right Z96.641
== END 2020-08-06 14:16 | disposition home health service (06) ==
LOC: ASU 05:02 → 3E 05:02